=== PATIENT | female | born 2005 | race Caucasian/White ===

== ENCOUNTER 2024-06-07 16:17 | Outpatient (OUT) | payer OTHER, SELFPAY ==
--- NOTE | 2024-06-07 16:42 | US_ITS ---
The [address] [address] Patient Name: SANCHEZ VARGAS MRN: [id number] date: 2005 Sex: F Assigned Patient Location: [place] Current Patient Location: [place] Accession/Order Number: [id number] Exam Date: 06/07/2024 21:43 Report Date: 06/07/2024 21:47 At the request of: JIM LÓPEZ DO Procedure: US pelvis Complete ultrasound. HISTORY: History of ovarian cyst. Transvaginal imaging refused FINDINGS: The uterus measures 7.9 x 2.7 x 3.9 cm. The uterus is anteverted.. No uterine lesion identified. The endometrium has a total combined thickness of 3mm. IUD present within the fundal portion of the endometrial canal. The RIGHT ovary measures 2.9 x 1.7 x 2.7 cm with resistive index of 0.42. Dominant follicle measures up to 16 mm. LEFT ovary measures 2.9 x 1.4 x 2.1 cm with resistive index of 0.55. Bilateral ovarian blood flow identified. No free fluid identified. There is no adnexal mass identified. US/US pelvis IMPRESSION: No ovarian cyst. Dominant right ovarian follicle. Unremarkable ovaries uterus and endometrial complex. IUD in adequate position. Impression dictated by: Rm Zepeda M.D.06/07/2024 9:47 PM Dictation Location: [place] [address] Electronically authenticated by: [id number] Y Date: 06/07/2024 21:47
[2024-06-07 16:50] LABS: Basophils Absolute Auto 0.1 10^3/uL (0.0-0.1); Basophils Percent Auto 0.5 % (0.2-2.0); Eosinophils Absolute Auto 0.3 10^3/uL (0.0-0.7); Eosinophils Percent Auto 2.1 % (0.9-7.0); Hemoglobin 13.1 g/dL (12.0-16.0); Immature Granulocytes Abs Auto 0.04 10^3/uL (0.00-0.03); Immature Granulocytes Pct Auto 0.3 % (0.0-0.5); Lymphocytes Absolute Auto 3.8 10^3/uL (1.2-3.8); Lymphocytes Percent Auto 32.2 % (20.5-60.0); Mean Corpuscular Hemoglobin 27.3 pg (26.7-34.0); Mean Corpuscular Volume 85.6 fL (81.0-99.0); Mean Platelet Volume 9.9 fL (9.5-13.5); Monocytes Absolute Auto 0.6 10^3/uL (0.3-0.8); Monocytes Percent Auto 4.9 % (1.7-12.0); Platelet Count 322 10^3/uL (150-450); Red Blood Count 4.79 10^6/uL (4.20-5.40); Red Cell Distribution Width 12.4 % (11.0-15.0); White Blood Count 11.7 10^3/uL (4.0-11.0)
[2024-06-07 17:07] LABS: INR 0.99; Partial Thromboplastin Time 29.1 sec (22.3-36.2); Prothrombin Time 10.5 sec (9.0-11.6)
[2024-06-07 17:36] LABS: Total Protein 7.5 g/dL (6.4-8.2)
[2024-06-09 12:08] LABS: Antithrombin Activity 123 % (75-135); Protein C-Functional 130 % (73-180)
[2024-06-09 13:09] LABS: Lupus Reflex Interpretation Comment: (.); PTT-LA 36.6 sec (0.0-43.5); dRVVT 38.4 sec (0.0-47.0)
[2024-06-09 15:08] LABS: Beta-2 Glycoprotein I Ab, IgA <9 (0-25); Beta-2 Glycoprotein I Ab, IgG <9 (0-20); Beta-2 Glycoprotein I Ab, IgM <9 (0-32)
[2024-06-17 12:08] LABS: DILUTE RUSSELL'S VIPER VENOM 41.6 sec (.)
== END 2024-06-07 16:18 | disposition home or self-care (01) ==
PROVIDERS: PCP Family Medicine; Visit Provider Obstetrics & Gynecology
DX: D69.9 Hemorrhagic condition, unspecified (principal); N83.209 Unspecified ovarian cyst, unspecified side; R10.2 Pelvic and perineal pain; Z79.899 Other long term (current) drug therapy
CPT/HCPCS: 36415; 76856; 81241; 84155; 85025; 85240; 85300; 85303; 85306; 85610; 85613; 85730; 86146; 86147

== ENCOUNTER 2024-12-27 19:24 | Outpatient (REF) | payer OTHER, SELFPAY ==
--- OUTSIDE RECORDS SUMMARY | 2021-01-03 10:17 | XMS_ITS | Continuity of Care Document ---
Author Organization [facility] Address [address] [place] [address] Phone Care Team Providers Care Director Title Name Role Phone Jarrod PEREZ Eddie Unavailable Unavailable Procedures Procedure Date TB INTRADERMAL TEST TB INTRADERMAL TEST Imm Admin Through 18 Yrs Of Age Meningococcal Conjugate Vaccine Advance Directives Directive Yes / No Effective Date File Name No Information Encounters Encounter Description Practice Location Reason(s) For Visit Diagnoses Date Provider Providers Copied on Encounter [facility], [address] [place] [address], [id number], [place] tel:[phone] [facility] No Information Jarrod BOBO Eddie. [address] [place], [place], [id number], [place]. tel:[phone] [facility], [address] [place] [address], [id number], [place] tel:[phone] [facility] Encounter for screening for respiratory tuberculosis Jarrod Cortes. [address] [place], [place], [id number], [place]. tel:[phone] [facility], [address] [place] [address], [id number], [place] tel:[phone] [facility] Encounter for screening for respiratory tuberculosis Jarrod Cortes. [address] [place] [address], [id number], [place]. tel:[phone] [facility], [address] [place], [place], [id number], [place] tel:[phone] [facility] No Information Jarrod Cortes. [address] [place], [place], [id number], [place]. tel:[phone] Family History Family Member Type Diagnosis Age At Onset No Information Immunizations Vaccine Date Status Comments Meningococcal MCV4O administered Source: New Immunization Record meningococcal B, OMV, 2 dose schedule refused Source: New Immuniza tion Record Payers Payer name Insurance type Covered constitution party ID Authoriza tion(s) [place] [facility] [id number] Medicaid [place] [facility] [place] [id number] [place] [facility] 190 [id number] Medicaid [place] [facility] [place] [id number] Social History Type Description Quantity Date Captured Comments Alcohol Use Details Unknown Caffeine Use Details Unknown Tobacco Use Status No Information Smoking Status No Information Sex Female Sexual Orientation Don't Know Gender Identity Female Chief Complaint And Reason For Visit No Information Reason For Referral Reason For Referral No Information History Of Present Illness Encounter Date Complaint History Of Prese nt Illness No Information Functional Status Date Functional Assessmen t No Information Instructions Date Instruction Additional Infor mation No Information Assessments Type Assessment Date No Information Patient Care Teams Name Effective Dates (start - stop) Status Members No Information
--- OUTSIDE RECORDS SUMMARY | 2024-12-27 16:00 | XMS_ITS | Encounter Summary ---
Author Organization [facility] Address [address] [place] [address] Care Team Providers Care Onion Tier Name Role Phone Jorge Luis Cardoza Primary Care Provider [phone] Reason for Visit * ReasonCommentsGynecologic Exam Encounter Details DateTypeDepartmentCare Team (Latest Contact Info)Vsosplhmdxo59/27/2025 4:00 PM EDTProcedure Visit [facility] [address] [place] [address] Mayra Rivera PA [address] [place], [id number] Well woman exam with routine gynecological exam Social History Tobacco UseTypesPacks/DayYears UsedDateSmoking Tobacco: NeverSmokeless Tobacco: NeverAlcohol UseStandard Drinks/WeekCommentsNever0 (1 standard drink = 0.6 oz pure alcohol)Humiliation, Afraid, Rape, and Kick questionnaireAnswerDate RecordedWithin the last year, have you been afraid of your partner or ex-partner?No02/04/2023Within the last year, have you been humiliated or emotionally abused in other ways by your partner or ex-partner?No02/04/2023 Within the last year, have you been kicked, hit, slapped, or otherwise physically hurt by your partner or ex-partner?No02/04/2023Within the last year, have you been raped or forced to have any kind of sexual activity by your part ner or ex-partner?No02/04/2023Social Connection and Isolation PanelAnswerDate RecordedIn a typical week, how many times do you talk on the phone with family, friends, or neighbors?More than three times a week02/04/2023How often do you get together with friends or relatives?Twice a week02/04/2023How often do you attend anabaptist or sikhism services?Never02/04/2023o you belong to any clubs or organizations such as anabaptist groups, unions, fraternal or athletic groups, or school groups?No02/04/2023How often do you attend meetings of the clubs or organizations you belong to?Never02/04/2023re you , , , , never , or living with a partner?Never gkqvqeb0502/04/2023 AUDIT-CAnswerDate RecordedQ1: How often do you have a drink containing alcohol? Never02/04/2023Q2: How many drinks containing alcohol do you have on a typical day when you are drinking?Patient does not drink02/04/2023Q3: How often do you have six or more drinks on one occasion?Never02/04/2023Overall Financial Resource Strain (CARDIA)AnswerDate RecordedHow hard is it for you to pay for the very basics like food, housing, medical care, and heating?Not very hard 02/04/2023HQ-2AnswerDate RecordedPatient Health Questionnaire-2 Score0 11/11/2024[facility] [place] [facility] - Occupational Stress QuestionnaireAnswerDate RecordedDo you feel stress - tense, restless, nervous, or anxious, or unable to sleep at night because yourmind is troubled all the time - these days?To some zmadup5102/04/2023Exercise Vital SignAnswerDate Recorded On average, how many days per week do you engage in moderate to strenuous exercise (like a brisk walk)?4 days02/04/2023On average, how many minutes do you engage in exercise at this level?60 min02/04/2023Hunger Vital SignAnswerDate RecordedWithin the past 12 months, you worried that your food would run out before you got the money to buymore.Never true02/04/2023Within the past 12 months, the food you bought just didn't last and you didn't have money to get more.Never true02/04/2023RAPARE - TransportationAnswerDate RecordedIn the past 12 months, has lack of transportation kept you from medical appointments or from getting medications?No02/04/2023In the past 12 months, has lack of transportation kept you from meetings, work, or from getting things needed for daily living?No02/04/2023Housing Stability Vital SignAnswerDate RecordedIn the last 12 months, was there a time when you were not able to pay the mortgage or rent on time?No02/04/2023In the last 12 months, how many places have you lived?2 02/04/2023In the last 12 months, was there a time when you did not have a steady place to sleep or slept in [facility] (including now)?No02/04/2023Comments NoSex and Gender InformationValueDate RecordedSex Assigned at BirthNot on file Legal FoePruofy33/15/2023 7:22 PM EDTGender CumnioivWcmguk95/15/2023 7:22 PM EDT Sexual OrientationNot on filedocumented as of this encounter Last Filed Vital Signs Vital SignReadingTime TakenCommentsBlood Xikoonoj379/7410 4:16 PM EDT Pulse--Temperature--Respiratory Rate--Oxygen Saturation--Inhaled Oxygen Concentration--Clwxpv74.6 kg (191 lb)12/27/2024 4:16 PM EDTHeight--Body Mass Index33.8309 2:01 PM EDTdocumented in this encounter Plan of Treatment DateTypeDepartmentCare Team (Latest Contact Info)Cubsbwzqihb51/17/2026 1:00 PM EDTOffice Visit [facility] [address] [place] [address] Tatum Martinez PA [address] [place] [phone] 01/03/2026 3:00 PM ESTProcedure Visit [facility] [address] [place] [address] Mayra Rivera PA [address] [place] [address] NameTypePriorityAssociated DiagnosesOrder SchedulePap SmearPathology and CytologyRoutine Well woman exam with routine gynecological exam Ordered: 12/27/2024Hemoglobin G4pBbmOzhmljl Well woman exam with routine gynecological exam Ordered: 12/27/2024BC auto differentialLabRoutine Well woman exam with routine gynecological exam Ordered: 12/27/2024TSHLabRoutine Well woman exam with routine gynecological exam Ordered: 12/27/2024holesterol, totalLabRoutine Well woman exam with routine gynecological exam Ordered: 12/27/2024omprehensive metabolic panelLabRoutine Well woman exam with routine gynecological exam Ordered: 12/27/2024documented as of this encounter Visit Diagnoses Diagnosis Well woman exam with routine gynecological exam Routine gynecological examination documented in this encounter Care Teams Team MemberRelationshipSpecialtyStart DateEnd Date Jorge Luis Cardoza DO [address] [place] [address] PCP - GeneralFamily Medicine07/09/22documented as of this encounter
--- OUTSIDE RECORDS SUMMARY | 2024-12-27 19:28 | XMS_ITS | Encounter Summary ---
Author Organization [facility] Address [address] [place] [address] Care Team Providers Care Demo Coordinator Name Role Phone VivienJorge Luis cabrera Primary Care Provider [phone]- [phone] Encounter Details DateTypeDepartmentCare Team (Latest Contact Info)Xbbuwralobk16/27/2025amboo flowsheet VICKI [facility]ARR[facility] [address] [place] [address] Mayra Rivera PA [address] [place] [address] Social History Tobacco UseTypesPacks/DayYears UsedDateSmoking Tobacco: NeverSmokeless [...] relatives?Twice a week02/04/2023How often do you attend denominational or yazdanism services?Never02/04/2023o you belong to any clubs or organizations such as denominational groups, unions, fraternal or athletic groups, or school groups?No02/04/2023How often do you attend meetings of the clubs or organizations you belong to?Never02/04/2023re you , , , , never , or living with a partner?Never qkdymdj3002/04/2023 AUDIT-CAnswerDate RecordedQ1: How often do you have [...] very hard 02/04/2023HQ-2AnswerDate RecordedPatient Health Questionnaire-2 Score0 11/11/2024[facility] [place] [facility] - Occupational Stress QuestionnaireAnswerDate RecordedDo you feel stress - tense, restless, nervous, or anxious, or unable to sleep at night because yourmind is troubled all the time - these days?To some hsmsjy5302/04/2023Exercise Vital SignAnswerDate Recorded On average, how many [...] steady place to sleep or [facility])?No02/04/2023Comments NoSex and Gender InformationValueDate RecordedSex Assigned at BirthNot on file Legal RqqUcdjuz82/15/2023 7:22 PM EDTGender KzweehicEdlwqs86/15/2023 7:22 PM EDT Sexual OrientationNot on filedocumented as of this encounter Plan of Treatment DateTypeDepartmentCare Team (Latest Contact Info)Odzysnzouxx47/17/2026 1:00 PM EDTOffice Visit [facility] [address] [place] [address] Tatum Martinez PA [address] [place] [address] 01/03/2026 3:00 PM ESTProcedure Visit [facility] [address] [place] [place] [address] Mayra Rivera PA [address] [place] [address] documented as of this encounter Visit Diagnoses Not on filedocumented in this encounter Care Teams Team MemberRelationshipSpecialtyStart DateEnd Date Jorge Luis Cardoza DO [address] [facility] [address] [place] [address] PCP - GeneralFamily Medicine07/09/22documented as of this encounter
--- OUTSIDE RECORDS SUMMARY | 2024-12-27 19:28 | XMS_ITS | Patient Health Record ---
Author Organization [facility] Address [address] [place] [address] Care Team Providers Care Life Management Teacher Name Role Phone Jorge Luis Cardoza Primary Care Provider Nadeen Oconnor Unavailable [phone] Allergies No Known Allergies Reason For Referral No Information Medications Medication SIG (Take, Route, Frequency, Duration) Notes Start Date End Date Status ActiveProbioticActive Social History Tobacco Use: Social History Observation Description Date Details (start date - stop date) Unknown Tobacco Control (Standard) Question Answer Notes Tobacco use: Uses tobacco in other forms Additional Findings: Tobacco usere-cigarette Problems Problem Type SNOMED Code ICD Code Onset Dates Problem Status W/U Status Risk Notes Problem Overweight (283356476) Overweight (BMI 25 .0-29.9) (E66.3) Activeconfirmed Vital Signs Temperature 97.1 degrees Fahrenheit 01/14/2024 Respiratory Rate16 /min01/14/2024lood pressure gbrykbklb51 mm Hg01/14/2024 Cgbrsg00 in01/14/2024lood pressure tqdetwra810 mm Hg01/14/20247060Qetnly068 lbs 01/14/2024BMI28.08 kg/m201/14/2024 Encounters Encounter Location Date Provider Diagnosis [id number] [facility] [address] [place] [address] 01/14/2024 Nadeen Soria Skin infection of left knee L08.9 ; Overweight (BMI 25.0-29.9) E66.3 and Influenza vaccination declined Z28.21 Assessments Encounter Date Diagnosis (ICD Code) Assessment Notes Treatment Notes Treatment Clinical Notes Section Notes 01/14/2024 Overweight (BMI 25.0-29.9) (ICD- 10 - E66.3) Learning About Healthy Weight material was published Continue healthy eating and exercise. May follow up with [facility] dietitians via a telehealth visit at [email or web address] to help with dietary changes to lower BMI. 01/14/2024Skin infection of left knee (ICD-10 - L08.9) Complete the entire course of antibiotics as prescribed, even when symptoms have improved, to prevent a relapse of infection and the development of antibiotic resistance. Follow up in the clinic or with PCP in 4-5 days if no improvement or worsening of symptoms. Follow up with PCP if no resolution of symptoms. For urgent/emergent signs and symptoms including increased redness, tenderness, swelling, purulent drainage, red streaks advancing up the limb, fever or other urgent concerns - seek care at the nearest ED for elevated level of care. Patient agreeable and verbalized understanding. All questions answered. 01/14/2024Influenza vaccination declined (ICD-10 - Z28.21) The CDC recommends influenza (flu) vaccine every fall. [facility] provides influenza vaccination for all ages. You can schedule a vaccination only appointment at your convenience. 01/14/2024Other Cephalexin Oral Tablet (CEPHALEXIN - ORAL) material was published, Mupirocin Topical Ointment (MUPIROCIN OINTMENT - TOPICAL) material was published Visit summary given to and discussed with patient and/or parent who verbalizes understanding and agreement with plan of care. Thank you for your visit. Please look for the satisfaction survey that you will receive via email. We look forward to receiving your feedback regarding your experience at [facility]. Plan Of Treatment No Information Insurance Providers Payer Name Payer Address Payer Phone Subscriber Number Group Number Insured Name Patient Relationship to Insured Coverage Start Date Coverage End Date PROMPT PAY/Bill to Patient Anastasia Carter - patient is the insured Medical (General) History Medical History History ICD Code No known health problems Z78.9 Surgical History Surgery Date(Month/Year) PE tubes as a child adenoidectomy as a child tonsillectomy as a child
--- OUTSIDE RECORDS SUMMARY | 2024-12-27 19:28 | XMS_ITS | Clinical Summary ---
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 Take before meals. 30 tablet 5Active metFORMIN XR (Glucophage-XR) 500 MG 24 hr tablet Indications:Encounter for weight managementTake 2 tablets (1,000 mg) by mouth in the evening. Take with meals Do not crush, chew, or split. 30 tablet 110507/6Active venlafaxine XR (Effexor XR) 37.5 MG 24 hr capsule Indications:Medication management,Anxiety, generalizedTake 1 capsule (37.5 mg) by mouth Daily Do not crush or chew. 90 capsule /20240304/5Active tiZANidine (Zanaflex) 2 MG tablet Indications:Cervical painTake 1-2 tablets (2-4 mg) by mouth at bedtime 60 tablet tive plecanatide (Trulance) tablet tablet Indications:Irritable bowel syndrome with constipationTake 1 tablet (3 mg) by mouth Daily 30 tablet 1105011/12/2025ctive meloxicam (Mobic) 15 MG tablet Indications:Cervical painTake 1 tablet (15 mg) by mouth once per day 30 tablet Expired Active Problems ProblemNoted DateDiagnosed DateDegeneration of spine11/06/2022reakthrough wvucwdtp27/06/2023Excessive menstruation at sypowws5311/06/2022Menorrhagia with irregular cycle11/06/2022anic qknkfh4511/06/2022Seasonal zsbeeiyaz33/06/2023 Encounters DateTypeDepartmentCare MilfXuebtvtnezs99/27/2025 4:00 PM EDTProcedure Visit [facility] [address] [address] Mayra Rivera PA Well woman exam with routine gynecological exam12/27/2024amb flowsheet [facility] [address] [place] [address] Mayra Rivera PA 11/12/2024Telephone [facility] [address] [place] [id number] Jorge Luis Cardoza, DO Medication Leyjlljn09/11/2025 2:15 PM EDTOffice Visit [facility] [address] [place] [address] Jorge Luis Cardoza, DO Routine general medical examination at a health care facility (Primary Dx); Irritable bowel syndrome with constipation; Cervical pain; Obesity (BMI 30-39.9); Panic fooenh3211/11/2024amboo flowsheet [facility] [address] [place] [address] Jorge Luis Cardoza, DO 11/11/20246850Jabrwv12/10/2025Refill [facility] [address] [address] Alva Cross LPN Medication management; Anxiety, iszxluurksx91/05/2025Refill [facility] [address] [place] [phone] Mayra Rivera PA Encounter for weight managementfrom Last 3 Months Immunizations ImmunizationAdministration DatesNext DueInfluenza, injectable, MDCK, preservative free, vsgmmdnxcult69/05/2023PD Test02/19/2023,02/04/2023 Family History Medical HistoryRelationNameCommentsDiabetesFatherLung cancerMaternal Grandmother DiabetesMotherRelationNameStatusCommentsBrotherAliveFatherDeceasedMaternal GrandmotherMotherAliveSisterAlive Social History Tobacco UseTypesPacks/DayYears UsedDateSmoking Tobacco: NeverSmokeless Tobacco: Never Tobacco Cessation:Counseling Given: Not Answered Alcohol UseStandard Drinks/WeekCommentsNever0 (1 standard drink = 0.6 oz pure alcohol)Humiliation, Afraid, Rape, and Kick questionnaireAnswerDate Recorded Within the last year, have you been afraid of your partner or ex-partner?No 02/04/2023Within the last year, have you been humiliated or emotionally abused in other ways by your partner or ex-partner?No02/04/2023Within the last year, have you been kicked, hit, slapped, or otherwise physically hurt by your partner or ex-partner?No02/04/2023Within the last year, have you been raped or forced to have any kind of sexual activity by your partner or ex-partner?No02/04/2023 Social Connection and Isolation PanelAnswerDate RecordedIn a typical week, how many times do you talk on the phone with family, friends, or neighbors?More than three times a week02/04/2023How often do you get together with friends or relatives?Twice a week02/04/2023How often do you attend jew or caodaism services?Never02/04/2023o you belong to any clubs or organizations such as jew groups, unions, fraternal or athletic groups, or school groups?No 02/04/2023How often do you attend meetings of the clubs or organizations you belong to?Never02/04/2023re you , , , , never , or living with a partner?Never cfnzrcr2602/04/2023UDIT-CAnswerDate RecordedQ1: How often do you have a drink containing alcohol?Never02/04/2023Q2: How many drinks containing alcohol do you have on a typical day when you are drinking?Patient does not drink02/04/2023Q3: How often do you have six or more drinks on one occasion?Never02/04/2023Overall Financial Resource Strain (CARDIA) AnswerDate RecordedHow hard is it for you to pay for the very basics like food, housing, medical care, and heating?Not very hard02/04/2023HQ-2AnswerDate RecordedPatient Health Questionnaire-2 L[facility]wm792[facility] - Occupational Stress QuestionnaireAnswerDate RecordedDo you feel stress - tense, restless, nervous, or anxious, or unable to sleep at night because yourmind is troubled all the time - these days?To some fruiju1502/04/2023 Exercise Vital SignAnswerDate RecordedOn average, how many days per week do you engage in moderate to strenuous exercise (like a brisk walk)?4 days02/04/2023On average, how many minutes do you engage in exercise at this level?60 min 02/04/2023Hunger Vital SignAnswerDate RecordedWithin the past 12 months, you worried that your food would run out before you got the money to buymore.Never true02/04/2023Within the past 12 months, the food you bought just didn't last and you didn't have money to get more.Never true02/04/2023RAPARE - TransportationAnswerDate RecordedIn the past 12 months, has lack of transportation kept you from medical appointments or from getting medications?No 02/04/2023In the past 12 months, has lack of transportation kept you from meetings, work, or from getting things needed for daily living?No02/04/2023 Housing Stability Vital SignAnswerDate RecordedIn the last 12 months, was there a time when you were not able to pay the mortgage or rent on time?No02/04/2023In the last 12 months, how many places have you lived?In the last 12 months, was there a time when you did not have a steady place to sleep or slept in ashelter (including now)?No02/04/2023CommentsNoSex and Gender InformationValueDate RecordedSex Assigned at BirthNot on fileLegal SexFemale 05/15/2022 7:22 PM EDTGender JecultdyKndbue96/15/2023 7:22 PM EDTSexual OrientationNot on file Last Filed Vital Signs Vital SignReadingTime TakenCommentsBlood Weltyqtb421/7410 4:16 PM EDT Lxyll2756 2:01 PM OGYKgxdbuitrst98.6 ??C (97.8 ??F)11/11/2024 2:01 PM EDTRespiratory Cvdw574703/27/2022 11:41 AM ESTOxygen Wmmngvmcpy04%11/11/2024 2:01 PM EDTInhaled Oxygen Concentration--Cekupd66.6 kg (191 lb)12/27/2024 4:16 PM EDT Criokd140 cm (5' 3 )11/11/2024 2:01 PM EDTBody Mass Index33.8311/11/2024 2:01 PM EDT Plan of Treatment DateTypeDepartmentCare Team (Latest Contact Info)Molzlxvrkqr33/17/2026 1:00 PM EDTOffice Visit [facility] [address] [place] [address] Tatum Martinez PA [address] [place] [address] 01/03/2026 3:00 PM ESTProcedure Visit [facility] [address] [place] [address] Mayra Rivera PA [address] [place] [address] Health MaintenanceDue DateLast DoneCommentsMMR Vaccines (1 of 1 - Standard series)06/22/2004DTaP/Tdap/Td Vaccines (1 - Tdap)06/22/2010Varicella Vaccines (1 of 2 - 13+ 2-dose series)06/22/2016HPV Vaccines (1 - 3-dose series)06/22/2018 Meningococcal B Vaccine (1 of 2 - Standard)2019Hepatitis B Vaccines (1 of 3 - 19+ 3-dose series)3COVID-19 Vaccine (3 - 2024- season)2024 03/11/2021, 02/01/2021Influenza Vaccine (#1)/07/2022HIB VaccinesAged OutNo longer eligible based on patient's age to complete this topicHepatitis A VaccinesAged OutNo longer eligible based on patient's age to complete this topic IPV VaccinesAged OutNo longer eligible based on patient's age to complete this topicMeningococcal VaccineAged OutNo longer eligible based on patient's age to complete this topicPneumococcal Vaccine: Pediatrics (0 to 5 Years) and At-Risk Patients (6 to 64 Years)Aged OutNo longer eligible based on patient's age to complete this topicRotavirus VaccinesAged OutNo longer eligible based on patient's age to complete this topic Insurance Care Teams Team MemberRelationshipSpecialtyStart DateEnd Date Jorge Luis Cardoza DO [address] [facility] [address] [place] [place] [phone] [facility] - [facility]
== END 2024-12-27 19:25 | disposition home or self-care (01) ==
LOC: LAB 19:24
PROVIDERS: PCP Family Medicine; Visit Provider Physician Assistant
DX: Z01.419 Encounter for gynecological examination (general) (routine) without abnormal findings (principal)
CPT/HCPCS: 88175